=== PATIENT | male | born 1930 | race Caucasian/White ===

== ENCOUNTER 2016-07-04 01:07 | Inpatient (IN) | payer MEDICARE, OTHER ==
[2016-07-04 01:46] LABS: BASO % 0.2 % (0-2); EOS % 3.6 % (0-7); EOSINOPHIL ABSOLUTE COUNT 0.3 tho/cmm (0.0-0.7); HCT-HEMATOCRIT 39.5 % (36.0-53.5); HGB-HEMOGLOBIN 13.8 gm/dl (13.5-17.0); IMMATURE GRANULOCYTES ABSOLUTE 0.01 tho/cmm (0-0.03); IMMATURE GRANULOCYTES PERCENT 0.1 % (0-0.3); LYMPH % 34.2 % (20-45); MCH (MEAN CORPUSCULAR HGB) 30.7 pg (28.0-32.0); MCHC MEAN CORPUSCULAR HGB CONC 34.9 % (32.0-36.0); MEAN PLATELET VOLUME 9.8 cmc (9.4-12.4); MONO % 8.1 % (0-12); MONOCYTE ABSOLUTE COUNT 0.7 tho/cmm (0.0-1.2); NEUTROPHIL ABSOLUTE COUNT 4.8 tho/cmm (1.6-8.0); NEUTROPHIL-AUTOMATED 4.8 tho/cmm (1.6-8.0); NEUTROPHILS % 53.8 % (40-80); PLATELET COUNT 154 tho/cmm (150-450); RED BLOOD COUNT 4.49 mil/cmm (4.40-5.70); RED CELL DISTRIBUTION WIDTH 14.2 % (12.4-16.4); WHITE BLOOD COUNT 8.9 tho/cmm (4.0-10.0)
[2016-07-04 01:51] LABS: INR 0.9 INR (0.9-1.1); PROTHROMBIN TIME 10.7 SECONDS (9.0-13.6)
[2016-07-04] MEDS ORDERED: XALATAN2.5 M1 EACH EYE (02:02)
[2016-07-04] MEDS ORDERED: LIPITOR20 M1 PO (02:02)
[2016-07-04] MEDS ORDERED: PROSCAR5 M1 PO (02:02)
[2016-07-04] MEDS ORDERED: ICAPS TABLET1 EACH PO (02:02)
[2016-07-04] MEDS ORDERED: ASPIRIN EC325 M1 PO (02:03)
[2016-07-04] MEDS ORDERED: TOPROL XL50 M1 PO (02:03)
[2016-07-04] MEDS ORDERED: PRINIVIL5 M1 PO (02:03)
[2016-07-04] MEDS ORDERED: COSOPT EYE DROP10 ML LEFT EYE (02:03)
[2016-07-04 02:04] LABS: ALBUMIN 3.4 g/dl (3.5-5.0); ALKALINE PHOSPHATASE 108 U/L (33-138); ALT/SGPT 22 U/L (12-78); BLOOD UREA NITROGEN 21 mg/dl (6-24); CALCIUM 8.8 mg/dl (8.5-10.5); CARBON DIOXIDE-VENOUS 25 mmol/L (22-32); CHLORIDE 107 mmol/l (96-110); CKMB 1.6 ng/ml (<3.6); GLUCOSE 106 mg/dL (70-110); SODIUM 142 mmol/L (135-145); eGFR VALUE FOR BLACK >60 mL/Min
[2016-07-04 02:05] LABS: ANION GAP 14 mmol/L (0-20); AST/SGOT 19 U/L (10-40); CREATINE PHOSPHOKINASE (CPK) 77 U/L (35-232); POTASSIUM 4.2 mmol/L (3.7-5.1)
[2016-07-04] MEDS ORDERED: ELIGARD7.5 MG SC (02:06)
[2016-07-05 07:16] LABS: CHOLESTEROL 164 mg/dl (120-200); HDL CHOLESTEROL 30 mg/dl (40-60); VLDL 100 mg/dl (0-30)
[2016-07-05 07:43] LABS: TRIGLYCERIDES 501 mg/dl (<149)
[2016-07-05] MEDS ORDERED: VASCEPA PO (16:11)
[2016-07-05] MEDS ORDERED: ZETIA10 M1 PO (16:11)
[2016-07-06] MEDS ORDERED: HYDROCODON-ACE1 EA16 PO (13:20)
== END 2016-07-06 14:50 | DRG 38 ==
LOC: EDMED 01:07 → EMR2 03:48 → 5EB 05:45 → PACU 07-05 15:52 → CCU 07-05 17:30
PROVIDERS: Emergency Medicine; Registered Nurse; ADMIT Family Medicine
PROC: 03CK0ZZ Extirpation of Matter from Right Internal Carotid Artery, Open Approach (ICD-10-PCS; principal; 2016-07-05)
DX: G45.9 Transient cerebral ischemic attack, unspecified (principal); G81.94 Hemiplegia, unspecified affecting left nondominant side; I50.22 Chronic systolic (congestive) heart failure; E78.5 Hyperlipidemia, unspecified; Z86.718 Personal history of other venous thrombosis and embolism; Z95.0 Presence of cardiac pacemaker; K21.9 Gastro-esophageal reflux disease without esophagitis; G47.33 Obstructive sleep apnea (adult) (pediatric); H26.9 Unspecified cataract; H40.9 Unspecified glaucoma; I10 Essential (primary) hypertension; I25.10 Atherosclerotic heart disease of native coronary artery without angina pectoris; I25.2 Old myocardial infarction; I25.5 Ischemic cardiomyopathy; I27.2 Other secondary pulmonary hypertension; I48.0 Paroxysmal atrial fibrillation; I65.21 Occlusion and stenosis of right carotid artery; M54.9 Dorsalgia, unspecified; R29.6 Repeated falls
CPT/HCPCS: J0690; J1642; J1650; J2250; J7030; Q9967

== ENCOUNTER 2016-09-02 16:02 | Observation (INO) | payer MEDICARE, OTHER ==
[~2016-09-02 16:02] MED LIST: ASPIRIN EC325 M1 PO; COSOPT EYE DROP10 ML LEFT EYE; ELIGARD7.5 MG SC; HYDROCODON-ACE1 EA16 PO; ICAPS TABLET1 EACH PO; LIPITOR20 M1 PO; PRINIVIL5 M1 PO; PROSCAR5 M1 PO; TOPROL XL50 M1 PO; VASCEPA PO; XALATAN2.5 M1 EACH EYE; ZETIA10 M1 PO
[2016-09-02 16:41] LABS: BASO % 0.2 % (0-2); EOSINOPHIL ABSOLUTE COUNT 0.4 tho/cmm (0.0-0.7); HCT-HEMATOCRIT 38.2 % (36.0-53.5); HGB-HEMOGLOBIN 13.3 gm/dl (13.5-17.0); IMMATURE GRANULOCYTES ABSOLUTE 0.02 tho/cmm (0-0.03); IMMATURE GRANULOCYTES PERCENT 0.2 % (0-0.3); LYMPH % 29.1 % (20-45); LYMPH ABSOLUTE COUNT 2.8 tho/cmm (0.8-4.5); MCH (MEAN CORPUSCULAR HGB) 31.1 pg (28.0-32.0); MCHC MEAN CORPUSCULAR HGB CONC 34.8 % (32.0-36.0); MCV (MEAN CELL VOLUME) 89.5 fl (82.0-96.0); MEAN PLATELET VOLUME 9.6 cmc (9.4-12.4); MONO % 7.2 % (0-12); MONOCYTE ABSOLUTE COUNT 0.7 tho/cmm (0.0-1.2); NEUTROPHIL ABSOLUTE COUNT 5.6 tho/cmm (1.6-8.0); NEUTROPHIL-AUTOMATED 5.6 tho/cmm (1.6-8.0); NEUTROPHILS % 59.3 % (40-80); PLATELET COUNT 138 tho/cmm (150-450); RED BLOOD COUNT 4.27 mil/cmm (4.40-5.70); RED CELL DISTRIBUTION WIDTH 14.7 % (12.4-16.4); WHITE BLOOD COUNT 9.5 tho/cmm (4.0-10.0)
[2016-09-02 16:54] LABS: ANION GAP 13 mmol/L (0-20); BLOOD UREA NITROGEN 20 mg/dl (6-24); CALCIUM 8.7 mg/dl (8.5-10.5); CARBON DIOXIDE-VENOUS 25 mmol/L (22-32); CHLORIDE 108 mmol/l (96-110); CREATININE 0.78 mg/dl (0.60-1.30); GLUCOSE 112 mg/dL (70-110); SODIUM 142 mmol/L (135-145); eGFR VALUE FOR BLACK >90 mL/Min
[2016-09-02 16:55] LABS: POTASSIUM 4.2 mmol/L (3.7-5.1)
== END 2016-09-03 10:50 ==
LOC: EDMED 16:02 → EMR2 18:11 → 5EB 19:18
PROVIDERS: Emergency Medicine; ADMIT Internal Medicine
DX: S12.091A Other nondisplaced fracture of first cervical vertebra, initial encounter for closed fracture (principal); M79.602 Pain in left arm; R51 Headache; I25.10 Atherosclerotic heart disease of native coronary artery without angina pectoris; E78.5 Hyperlipidemia, unspecified; I48.0 Paroxysmal atrial fibrillation; I11.9 Hypertensive heart disease without heart failure; M19.90 Unspecified osteoarthritis, unspecified site; K21.9 Gastro-esophageal reflux disease without esophagitis; G47.33 Obstructive sleep apnea (adult) (pediatric); Z79.82 Long term (current) use of aspirin; Z79.899 Other long term (current) drug therapy; Z86.718 Personal history of other venous thrombosis and embolism; Z86.711 Personal history of pulmonary embolism; Z85.46 Personal history of malignant neoplasm of prostate; Z82.49 Family history of ischemic heart disease and other diseases of the circulatory system; Z90.49 Acquired absence of other specified parts of digestive tract; Z95.0 Presence of cardiac pacemaker; Z98.890 Other specified postprocedural states; W01.0XXA Fall on same level from slipping, tripping and stumbling without subsequent striking against object, initial encounter
CPT/HCPCS: G0378

== ENCOUNTER 2016-09-15 12:11 | Emergency (ER) | payer MEDICARE, OTHER ==
[2016-09-15] MEDS ORDERED: VASCEPA1 GM PO (12:20)
[2016-09-15] MEDS ORDERED: VIBRAMYCIN100 M1 PO (12:22)
[2016-09-15] MEDS ORDERED: NORVASC5 M2 PO (12:22)
[2016-09-15] MEDS ORDERED: MULTIVITAMINS1 EAC6 PO (12:37)
[2016-09-15 13:12] LABS: BASO % 0.3 % (0-2); EOS % 2.6 % (0-7); EOSINOPHIL ABSOLUTE COUNT 0.2 tho/cmm (0.0-0.7); HCT-HEMATOCRIT 37.3 % (36.0-53.5); HGB-HEMOGLOBIN 12.8 gm/dl (13.5-17.0); IMMATURE GRANULOCYTES ABSOLUTE 0.02 tho/cmm (0-0.03); IMMATURE GRANULOCYTES PERCENT 0.2 % (0-0.3); LYMPH % 26.1 % (20-45); LYMPH ABSOLUTE COUNT 2.3 tho/cmm (0.8-4.5); MCH (MEAN CORPUSCULAR HGB) 30.7 pg (28.0-32.0); MCHC MEAN CORPUSCULAR HGB CONC 34.3 % (32.0-36.0); MCV (MEAN CELL VOLUME) 89.4 fl (82.0-96.0); MEAN PLATELET VOLUME 9.7 cmc (9.4-12.4); MONO % 8.5 % (0-12); MONOCYTE ABSOLUTE COUNT 0.7 tho/cmm (0.0-1.2); NEUTROPHIL ABSOLUTE COUNT 5.4 tho/cmm (1.6-8.0); NEUTROPHIL-AUTOMATED 5.4 tho/cmm (1.6-8.0); NEUTROPHILS % 62.3 % (40-80); PLATELET COUNT 151 tho/cmm (150-450); RED BLOOD COUNT 4.17 mil/cmm (4.40-5.70); RED CELL DISTRIBUTION WIDTH 14.6 % (12.4-16.4); WHITE BLOOD COUNT 8.7 tho/cmm (4.0-10.0)
[2016-09-15 13:20] LABS: ANION GAP 14 mmol/L (0-20); BLOOD UREA NITROGEN 25 mg/dl (6-24); CALCIUM 8.8 mg/dl (8.5-10.5); CARBON DIOXIDE-VENOUS 25 mmol/L (22-32); CHLORIDE 109 mmol/l (96-110); CREATININE 0.97 mg/dl (0.60-1.30); GLUCOSE 112 mg/dL (70-110); SODIUM 143 mmol/L (135-145); eGFR VALUE FOR BLACK 83 mL/Min
[2016-09-15 13:21] LABS: POTASSIUM 4.9 mmol/L (3.7-5.1)
[2016-09-15] MEDS ORDERED: LISINOPRIL2.5 M1 PO (14:08)
== END 2016-09-15 14:15 ==
LOC: EDMED 12:11
PROVIDERS: Emergency Medicine
DX: R55 Syncope and collapse (principal); I10 Essential (primary) hypertension; I48.91 Unspecified atrial fibrillation
CPT/HCPCS: J7030